=== PATIENT | male | born 1950 | race Two or more races ===

== ENCOUNTER 2018-12-14 11:58 | Emergency (ER) | payer OTHER ==
[~2018-12-14 11:58] MED LIST: Iopamidol 370 76% 100 ML VIAL ONE
[2018-12-14 13:17] LABS: #Basophils 0.1 thou/uL (0.0-0.2); #Eosinphils 0.1 thou/uL (0.0-0.7); #Lymphocytes 1.2 thou/uL (1.20-3.40); #Monocytes 0.8 thou/uL (0.11-0.59); #Neutrophils 6.5 thou/uL (1.40-6.50); %Basophils 1.2 % (0.0-1.0); %Eosinophils 0.9 % (0.0-10.0); %Lymphocytes 13.5 % (21.0-51.0); %Monocytes 9.6 % (0.0-10.0); %Neutrophils 74.8 % (42.0-75.0); Hemoglobin 13.8 g/dL (14.0-18.0); Mean Corpuscular HGB CONC 32.9 g/dL (32.0-36.0); Mean Corpuscular Hemoglobin 30.4 pg (27.0-31.0); Mean Corpuscular Volume 92.2 fL (78.0-98.0); Mean Platelet Volume 7.5 fL (7.4-10.4); Platelet Count 299 thou/uL (130-400); RBC Distribution Width 11.7 % (11.5-14.5); Red Blood Cell (RBC) Count 4.54 mill/uL (4.70-6.10); White Blood Cell (WBC) Count 8.7 thou/uL (4.8-10.8)
[2018-12-14 13:29] LABS: ALT (SGPT) 14 U/L (8-55); AST (SGOT) 16 U/L (5-34); Albumin 4.2 g/dL (3.4-4.8); Alkaline Phosphatase 84 U/L (40-110); Anion Gap 16 mmol/L (10-20); BUN (Urea Nitrogen) 22 mg/dL (8.4-25.7); Bilirubin, Total 0.6 mg/dL (0.2-1.2); Calc. Creatinine Clearance 0 mL/min (70-130); Calcium 10.1 mg/dL (7.8-10.44); Carbon Dioxide 27 mmol/L (23-31); Chloride 95 mmol/L (98-107); Estimated GFR-MDRD 62; Globulin 3.4 g/dL (2.4-3.5); Glucose 231 mg/dL (80-115); Lipase 24 U/L (8-78); Potassium 4.3 mmol/L (3.5-5.1); Protein, Total 7.6 g/dL (5.8-8.1); Sodium 134 mmol/L (136-145)
--- NOTE | 2018-12-14 14:52 | CT ---
CT ABDOMEN AND PELVIS WITH IV CONTRAST: Date: 12/14/18 HISTORY: Left-sided abdominal pain. Left lower quadrant pain. FINDINGS: There are no previous exams for comparison. The lung bases are clear. No calcified gallstones are seen. No free air, free fluid, or lymphadenopat hy is noted in the abdomen or pelvis. Liver, spleen, pancreas, adrenal glands, and right kidney are n ormal. There is a 1.0 cm cyst in the superior pole of the left kidney. The small bowel loops are not abnormally dilated. There is fecal material in the colon. No pericoloni c inflammatory changes are seen. There are degenerative changes in the spine. There are vascular calcifications without evidence of an eurysmal dilatation of the abdominal aorta. The urinary bladder is well distended. The prostate is en larged. A normal appearing appendix is seen. IMPRESSION: No acute process. POS: [facility]
[2018-12-14] MEDS ORDERED: Fentanyl 100 MCG/2 ML VIAL ONE (15:17)
== END 2018-12-14 16:52 | disposition home or self-care (01) ==
LOC: SCSER 11:58
DX: R10.32 Left lower quadrant pain (principal); E11.9 Type 2 diabetes mellitus without complications; Z79.84 Long term (current) use of oral hypoglycemic drugs
CPT/HCPCS: 74177; 80053; 83605; 83690; 85025; 96374; J3010; Q9967